=== PATIENT | female | born 1945 | race Caucasian/White ===

== ENCOUNTER → 2016-09-22 | Outpatient (CLI) | payer OTHER ==
--- NOTE | 2016-09-22 14:31 | NM ---
Nuclear medicine parathyroid scan. History: Hyperparathyroidism. Multinodular goiter (E 21.3) Technique: Following the IV administration of 21.7 mCi Tc 99m labeled sestamibi, SPECT images were ob tained over the neck and reconstructions were performed in multiple projections at 30 minutes and 3 h ours. Findings: On the 30 minutes imaging there is normal homogeneous uptake involving the right and left l obes of the thyroid. On the 3 hours delayed imaging there is no evidence for focal increased uptake associated with the ri ght or left lobe lobe of the thyroid or within the soft tissues of the neck down to the level of the heart to suggest focus of parathyroid adenoma. Impression: Normal nuclear medicine parathyroid scan. No abnormal focus of increased uptake on delaye d imaging to suggest location of parathyroid adenoma.
== END ==
LOC: FIMAGING 09:37
PROVIDERS: ATTEND Surgery
DX: E21.3 Hyperparathyroidism, unspecified (principal)
CPT/HCPCS: 78070; A9500

== ENCOUNTER → 2016-09-28 | Outpatient (CLI) | payer OTHER ==
[~2016-09-28] MED LIST: IOPAMIDOL (ISOVUE-300) 100 ML BTL IV ONE
[2016-09-28 14:46] LABS: CREATININE 0.9 mg/dL (0.6-1.0); GLOMERULAR FILTRATION RATE > 60
--- NOTE | 2016-09-28 18:05 | CT ---
CT Neck, Without and With IV Contrast Indication: Hyperparathyroidism. Negative ultrasound and NM parathyroid scan. Technique: The neck was scanned with 1.5-mm thick helically acquired slices prior to administration of IV contrast during arterial phase and following a short delay. Data was reconstructed in the axia l, coronal, and sagittal plane. Dose reduction techniques were utilized. 90 mL of Isovue-300 was un eventfully intravenously administered. Findings: No hypervascular nodule in the expected location of the parathyroid glands. No ectopic hy pervascular nodule along the course of the carotid arteries or in the tracheoesophageal groove. A round 4-mm low-attenuation subcutaneous nodule posteriorly along the left trapezius muscle on image #44 on the noncontrast phase has minimal low-grade enhancement, measuring 36, 59, and 49 Hounsfield units on the noncontrast, arterial, and delayed phase. The location and degree of enhancement make t his unlikely to be a parathyroid adenoma. The heterogeneous minimally enlarged thyroid gland has no discrete dominant nodule or mass. Specific ally, no hypervascular nodule to suggest an intrathyroid parathyroid adenoma. A round probably benign 4-mm noncalcified pulmonary nodule is present in the posterior segment right upper lobe adjacent to the fissure on image #149 of series #8. The lung apices are otherwise clear. No spiculated or ground-glass lesions. The airway is clear. No enlarged lymph node or mass through out the neck. The common carotid, carotid bulbs, internal and external carotid arteries are widely p atent. No flow-limiting plaque. Impression: 1. No identifiable parathyroid adenoma. 2. Small, 4-mm, subcutaneous nodule along the left trapezius muscle is unlikely a parathyroid adenom a given the degree of enhancement and location. 3. Probably benign 4-mm right upper lobe pulmonary nodule. Recommend follow-up noncontrast chest CT in 12 months. E:nanci
== END ==
LOC: FIMAGING 13:31
PROVIDERS: ATTEND Surgery
DX: E21.3 Hyperparathyroidism, unspecified (principal)
CPT/HCPCS: 70492; Q9967

== ENCOUNTER 2016-10-13 07:30 | Day surgery (SDC) | payer OTHER ==
[2016-10-13] MEDS ORDERED: MIDAZOLAM 2 MG/2 ML VIAL ONE (09:12)
[2016-10-13] MEDS ORDERED: PROMETHAZINE HCL 25 MG/ML INJ ONE (09:12)
[2016-10-13] MEDS ORDERED: fentaNYL 100 MCG/2 ML INJ ONE (09:13)
[2016-10-13] MEDS ORDERED: ONDANSETRON 4 MG/2 ML VIAL ONE (09:13)
[2016-10-13] MEDS ORDERED: IOPAMIDOL (ISOVUE-300) 100 ML BTL IV ONE (11:43)
[2016-10-13] MEDS ORDERED: HEPARIN 10,000 UNIT/10 ML MDV ONE (14:24)
== END 2016-10-13 15:15 | disposition home or self-care (01) ==
LOC: FIMAGING 07:30
PROVIDERS: ATTEND Radiology Diagnostic Radiology
DX: E21.3 Hyperparathyroidism, unspecified (principal); R93.8 Abnormal findings on diagnostic imaging of other specified body structures; R91.1 Solitary pulmonary nodule
CPT/HCPCS: 36500; 75893; 99152; 99153; C1769; J1644; J2250; J2405; J2550; J3010; Q9967

== ENCOUNTER 2016-11-04 06:00 | Observation (INO) | payer OTHER ==
[2016-11-04] MEDS ORDERED: LIDOCAINE 1% 2 ML INJ ONE (06:20)
[2016-11-04] MEDS ORDERED: LR 1,000 ML IV ONE (06:52)
[2016-11-04] MEDS ORDERED: LIDOCAINE 1% 5 ML SDV ID PRN (06:52)
[2016-11-04] MEDS ORDERED: THROMBIN (BOVINE) 5,000 UNIT VIAL TP ONE (07:08)
[2016-11-04] MEDS ORDERED: BUPIVACAINE 0.25% 30 ML SDV ONE (07:08)
[2016-11-04] MEDS ORDERED: fentaNYL 100 MCG/2 ML INJ ONE ×4 (07:17→11:33)
[2016-11-04] MEDS ORDERED: PROPOFOL 200 MG/20 ML VIAL ONE (07:17)
[2016-11-04] MEDS ORDERED: DEXAMETHASONE 4 MG/ML VIAL ONE ×2 (07:18)
[2016-11-04] MEDS ORDERED: ROCURONIUM 50 MG/5 ML VIAL ONE (07:18)
[2016-11-04] MEDS ORDERED: LIDOCAINE 2% 100 MG/5 ML SYR ONE (07:19)
[2016-11-04 07:23] LABS: CALCIUM 9.3 ng/dL (8.5-10.4); CREATININE 0.9 mg/dL (0.6-1.0)
[2016-11-04] MEDS ORDERED: MIDAZOLAM 2 MG/2 ML VIAL ONE (07:23)
[2016-11-04] MEDS ORDERED: ceFAZolin 2 GM/DEXTROSE 100 ML IV ONE (07:30)
[2016-11-04 07:35] LABS: PTH INTACT NO MINERALS 136.7 pg/ml (10.8-79.4)
[2016-11-04] MEDS ORDERED: epHEDrine SULFATE 10 MG/ML SYR ONE (07:58)
[2016-11-04] MEDS ORDERED: SUGAMMADEX SODIUM 200 MG/2 ML VIAL IVP ONE (09:26)
[2016-11-04] MEDS ORDERED: SKIN ADHESIVE (DERMABOND) 1 EACH TP ONE (09:37)
--- NOTE | 2016-11-04 11:50 | POSTOPPROG ---
Post Op Note Date of Operation: 11/04/16 Surgeon: Emmanuel Casillas (, FACS) Materials Planner/Production Planner: Kailyn Campbell MD Anesthesiologist: Deric Mosley MD Anesthesia: GET(General Endotracheal) Pre-op Diagnosis: hyperparathyroidism/bilateral thyroid nodules Post-op Diagnosis: same Procedure: 1. Parathyroidectomy 2. biopsy left partial thyroid lobectomy Findings: right superior parathyroid 100mg left superior 60mg/thyroid nodule benign Inf/Abcess present in the surg proc area at time of surgery?: No EBL: Minimal Complications: none
[2016-11-04 12:08] LABS: CALCIUM 8.7 ng/dL (8.5-10.4)
[2016-11-04 12:20] LABS: PTH INTACT NO MINERALS 47.7 pg/ml (10.8-79.4)
[2016-11-04] MEDS: CALCITRIOL 0.25 MCG CAP PO SCH (17:26)
[2016-11-04] MEDS: CALCIUM CARBONATE 500 MG CHEWABLE TAB PO SCH ×2 (17:26→20:59)
[2016-11-04] MEDS ORDERED: PROMETHAZINE HCL 25 MG TAB PO PRN (18:54)
--- NOTE | 2016-11-04 18:59 | SOAPPROG ---
Downtime Inpatient MD Late Entry SOAP Note: Ena was nauseated and vomited just now/first Ca++ was 8.7 repeat pending surgical site is uncomplicated/Chvostek's negative. Rec: continue IV fluids, monitor Ca++, anti-emetics S MD Vinny, FACS
[2016-11-04] MEDS: ONDANSETRON 4 MG/2 ML VIAL IVP PRN (19:03)
--- NOTE | 2016-11-04 19:03 | GOP ---
[f rep st] OPERATIVE REPORT DATE OF OPERATION: 11/04/2016 SURGEON: Emmanuel Casillas MD, FACS TUFTER HAND: Kailyn Campbell MD. ANESTHESIA: General endotracheal. ANESTHESIOLOGIST: Jeffrey Mosley MD. PREOPERATIVE DIAGNOSIS: 1. Hyperparathyroidism. 2. Bilateral thyroid nodules, left greater than right. POSTOPERATIVE DIAGNOSIS: 1. Hyperparathyroidism. 2. Bilateral thyroid nodules, left greater than right. PROCEDURE PERFORMED: 1. Parathyroidectomy. 2. Partial left thyroid lobectomy. FINDINGS: 1. Right superior parathyroid gland measuring approximately 100 mg, hypercellular. 2. Left superior parathyroid gland weighing approximately 60 mg, mildly hypercellular. 3. Left inferior thyroid lobe nodules submitted for frozen as well as permanent section demonstrating benign-appearing follicular nodules. ESTIMATED BLOOD LOSS: 10 mL. DESCRIPTION OF PROCEDURE: After informed consent was obtained, the patient was brought to the operating room and placed under general anesthesia. The neck was prepped and draped in usual fashion. Before proceeding, a time-out and identification of the patient was performed. 0.25% Marcaine was used to infiltrate the planned incision site. A transverse incision was made between the heads of the sternocleidomastoid muscle and dissection carried out with cautery through the subcutaneous tissues platysma muscle, and flaps were elevated inferiorly to the suprasternal notch, superiorly to the cricothyroid membrane. The strap muscles were mobilized in the midline. Dissection was initiated on the right side where a selective venous sampling for parathyroid hormone revealed a spike at the inferior jugular vein sample. The right thyroid lobe was mobilized. The inferior and superior thyroidal vessels were dispatched with a Harmonic Scalpel. The recurrent laryngeal nerve was dissected and carefully preserved in the course of dissection. An inferior parathyroid gland was found early in the dissection , and this was close to the capsule of the thyroid and was preserved and protected during the remainder of the operation. It did not appear hypercellular. Further dissection revealed an enlarged gland cephalad to the course of the recurrent laryngeal nerve. A large middle thyroidal vessel was identified at this juncture and was divided between 4-0 silk ligatures for hemostasis. The gland was then dissected from the surrounding fibrofatty tissue in the neck and was submitted to Pathology for frozen section. While we were waiting for the results of subsequent parathyroid hormone levels of which the baseline for the patient was 137 pg/mL, we explored the left neck because of the enlarged thyroid nodules. The right gland though not enlarged had several small soft nonsuspicious nodules. The right gland was mobilized in similar fashion though it was larger in particularly inferior pole. The recurrent laryngeal nerve was identified and protected in the course of subsequent dissection. The inferior and superior thyroidal vessels were dispatched with the harmonic Scalpel and a dominik left thyroid lobectomy was performed dividing the inferior pole with the Harmonic Scalpel to the midline with minimal bleeding. Several colloid nodules were present, and the specimen was submitted for frozen section. Subsequently the first parathyroid hormone level came back, and it only dropped from 137 to 102. I elected to explore the neck further for evidence of a second adenoma. The left superior gland was identified cephalad to the course of the recurrent laryngeal nerve. This was dissected from the surrounding fibrofatty tissues and noted to be enlarged. It was detached from its blood supply and submitted for frozen section and weighed approximately 60 mg and was described as mildly hypercellular. Subsequent parathyroid hormone levels dropped into the 50 range, and this was consistent with a second adenoma. The pathology report of the left inferior pole thyroid nodules suggested benign etiology with mostly follicular nodules noted within the gland. Surgicel was placed over the surgical field for hemostasis on the left side. The right side appeared hemostatic. The neck was inspected for hemostasis which appeared secure. The strap muscles were approximated in the midline with interrupted 3-0 Vicryl suture. Subcutaneous tissues and platysma were approximated with interrupted 3-0 Vicryl suture, and the skin was closed with 5-0 Monocryl suture in a subcuticular fashion. Topical Dermabond was applied. Patient was extubated in the operating room and returned to the recovery room in satisfactory condition. Needle, sponge, and instrument count correct. COMPLICATIONS: None. /[id number]/MODL MTDD
[2016-11-04] MEDS: HYDROCODONE/APAP 5/325 TAB PO PRN (20:59)
[2016-11-04] MEDS: NITROFURANTOIN MACROBID 100 MG CAP PO SCH (20:59)
[2016-11-04] MEDS ORDERED: MACROBID 100 MG PO SCH (21:00)
[2016-11-04 23:11] VITALS: RESP 16
[2016-11-05] MEDS: ONDANSETRON 4 MG/2 ML VIAL IVP PRN (07:44)
[2016-11-05] MEDS ORDERED: ACETAMINOPHEN 325 MG TAB PO PRN (08:58)
[2016-11-05] MEDS: HYDROCODONE/APAP 5/325 TAB PO PRN (08:59)
[2016-11-05] MEDS ORDERED: ENOXAPARIN 40 MG/0.4 ML SYR SC SCH (09:00)
[2016-11-05] MEDS ORDERED: NON-FORMULARY NEW DRUG (Loratadine [Claritin 10 Mg] 10 MG) PO SCH (09:00)
[2016-11-05] MEDS ORDERED: CETIRIZINE 10 MG TAB PO SCH (09:00)
[2016-11-05] MEDS ORDERED: Herbals/Supplements -Info Only PO SCH (09:00)
[2016-11-05] MEDS ORDERED: GLUCOSAMINE SULF 500 MG CAP PO SCH (09:00)
[2016-11-05] MEDS ORDERED: MULTIVITAMINS 1 EACH TAB PO SCH (09:00)
[2016-11-05] MEDS ORDERED: ONDANSETRON DISINTEGRATING 4 MG TAB PO PRN (10:05)
[2016-11-05] MEDS ORDERED: IBUPROFEN 200 MG TAB PO PRN (10:06)
[2016-11-05] MEDS ORDERED: traMADol 50 MG TAB PO PRN (10:06)
--- NOTE | 2016-11-05 10:12 | SOAPPROG ---
SOAP Progress Note Assessment/Plan: Assessment: post op nause and vomiting/? related to anesthesia and narcotics Ca++ appropriately corrected post op pre-existing UTI on Macrobid Plan: continue Calcitriol/oral Ca++/Macrobid DC narcotics oral Ibuprofen alternating with Tylenol +/- Tramadol oral Zofran anticipate DC later today. Emerson Casillas MD, FACS 11/05/16 10:09 Subjective: c/o nausea/has not vomited since last night Objective: Vital Signs Temp Pulse Resp BP Pulse Ox 37.2 C 82 16 116/61 91 L 11/05/16 08:00 11/05/16 08:00 11/05/16 08:00 11/05/16 08:00 11/05/16 08:00 11/04/16 11/05/16 11/06/16 05:59 05:59 05:59 Intake Total 2605 Output Total 1320 Balance 1285 Physical Exam - Physical Exam General Appearance: alert, mild distress Neck: other (incision o.k.) Respiratory: lungs clear Cardiac/Chest: regular rate, rhythm Abdomen: non-tender, soft ICD10 Worksheet Patient Problems: Problems Problem Status Onset Hyperparathyroidism Acute Post-operative nausea and vomiting Acute Thyroid nodule Acute UTI (urinary tract infection) Acute - ICD10 Problem Qualifiers (1) Hyperparathyroidism (2) Thyroid nodule (3) Post-operative nausea and vomiting (4) UTI (urinary tract infection) Qualifiers: Urinary tract infection type: U Hematuria presence: H Indwelling urinary catheter type: I Encounter type: E
[2016-11-05] MEDS: CALCIUM CARBONATE 500 MG CHEWABLE TAB PO SCH (11:31)
[2016-11-05] MEDS: NITROFURANTOIN MACROBID 100 MG CAP PO SCH (11:31)
[2016-11-05] MEDS: CALCITRIOL 0.25 MCG CAP PO SCH (11:31)
[2016-11-05 11:38] VITALS: BP 138/68; PULSE 77; TEMP 98.4; O2SAT 93
== END 2016-11-05 14:45 | disposition home or self-care (01) ==
LOC: F3E 06:00
PROVIDERS: ADMIT Surgery; ATTEND Surgery
PROC: 0GBL0ZX Excision of Right Superior Parathyroid Gland, Open Approach, Diagnostic (ICD-10-PCS; principal; 2016-11-04 07:30)
PROC: 0GBG0ZZ Excision of Left Thyroid Gland Lobe, Open Approach (ICD-10-PCS; principal; 2016-11-04 07:30)
PROC: 0GB Endocrine System, Excision (ICD-10-PCS; principal; 2016-11-04 07:30)
DX: E21.3 Hyperparathyroidism, unspecified (principal); E04.2 Nontoxic multinodular goiter; K91.89 Other postprocedural complications and disorders of digestive system; R11.2 Nausea with vomiting, unspecified; N39.0 Urinary tract infection, site not specified; M81.0 Age-related osteoporosis without current pathological fracture; H35.30 Unspecified macular degeneration; Z96.642 Presence of left artificial hip joint; Z85.3 Personal history of malignant neoplasm of breast; Z90.13 Acquired absence of bilateral breasts and nipples
CPT/HCPCS: 60210; 60500; J0690; J1100; J1650; J2001; J2250; J2405; J2704; J3010

== ENCOUNTER → 2018-02-22 | Outpatient (CLI) | payer OTHER | LOC: BRMIMAGING 10:58 | PROVIDERS: ATTEND Surgery | DX: M81.0 Age-related osteoporosis without current pathological fracture (principal); Z87.81 Personal history of (healed) traumatic fracture; Z79.83 Long term (current) use of bisphosphonates ==